=== PATIENT | female | born 1995 | race Caucasian/White ===

== ENCOUNTER 2020-09-09 17:45 | Inpatient (IN) | payer MEDICAID ==
[2020-09-09] MEDS ORDERED: Nalbuphine 10 MG/ML Syringe IVPUSH PRN (21:17)
[2020-09-09] MEDS ORDERED: Sodium Chloride 0.9% 10 ML Syringe FLUSH PRN (21:17)
[2020-09-09] MEDS ORDERED: ceFAZolin 2 GM in Premix Bag 1 BAG IV ONE (21:17)
[2020-09-09] MEDS ORDERED: Ondansetron 4 MG/2 ML SDV IVPUSH PRN (21:17)
[2020-09-09] MEDS ORDERED: Oxytocin/Lactated Ringers 10 UNIT/1,000 ML BAG IV SCH (21:30)
--- NOTE | 2020-09-09 21:44 | PCM.LDHP ---
L&D History of Present Illness - General Date of Service: 09/09/20 Admit Problem/Dx: Patient Status Order with Admit Dx/Problem 09/09/20 17:50 Patient Status [ADT] Routine Admission Diagnosis/Problem Admission Diagnosis/Problem Source of Information: Patient History Limitations: Reports: No Limitations - History of Present Illness Introduction:: Patient is a 25 y/o at 39 0/7 wks who presents in labor. Contractions started just about 24 hours ago. Have been getting closer/stronger. No concerns for LOF - Related Data Allergies/Adverse Reactions: Allergies Allergy/AdvReac Type Severity Reaction Status Date / Time Penicillins Allergy Difficulty Verified 09/09/20 19:03 Breathing Home Medications: Home Meds Acetaminophen [Tylenol Extra Strength] 500 mg PO ASDIRECTED PRN 09/09/20 [History] Folic Acid 1 mg PO DAILY 09/09/20 [History] Pnv No.95/Ferrous Fum/Folic AC [ Tablet] 1 tab PO DAILY 09/09/20 [History] Past Medical History [employer] History: Reports: : 3 Para: 2 LMP (Approximate): Neurological History: Reports: Other (See Below) (Spina bifida occulta) - Past Surgical History Other Surgical History Comment: No past surgical history Social & Family History - Tobacco Use Smoking Status *Q: Former Smoker - Alcohol Use Alcohol Use History: No - Recreational Drug Use Recreational Drug Use: No H&P Review of Systems - Review of Systems: Review Of Systems: See Below General: Reports: No Symptoms Pulmonary: Reports: No Symptoms Cardiovascular: Reports: No Symptoms Gastrointestinal: Reports: Abdominal Pain (contractions) Genitourinary: Reports: No Symptoms Musculoskeletal: Reports: No Symptoms Psychiatric: Reports: No Symptoms Neurological: Reports: No Symptoms L&D Exam - Exam Exam: See Below - Vital Signs Vital Signs: Last Vital Signs Temp 37.3 C 09/09/20 18:10 Pulse 79 09/09/20 18:10 Resp 16 09/09/20 18:10 BP 119/76 09/09/20 18:10 Pulse Ox 100 09/09/20 18:10 Weight: 75.296 kg - OB Specific Contraction Intensity: Moderate to Strong Movement: Active Heart Tones: Present Heart Tones per Min: 150 Heart Rate (FHR) Variability: Moderate (6-25 bmp) - Gonzalez Score Gonzalez Score Cervix Position: Midposition Gonzalez Score Consistency: Soft Gonzalez Score Effacement: >80% Gonzalez Score Dilation: 3-4 cm Gonzalez Score 's Station: -2 Gonzalez Score Total: 9 - Exam General: Alert, Oriented, Cooperative Lungs: Clear to Auscultation, Normal Respiratory Effort Cardiovascular: Regular Rate, Regular Rhythm GI/Abdominal Exam: Soft, Non-Tender Extremities: Normal Inspection Skin: Warm, Dry, Intact - Problem List (1) 39 weeks gestation of SNOMED Code(s): 42489655 ICD Code: Z3A.39 - 39 WEEKS GESTATION OF Status: Acute Current Visit: Yes (2) GBS (group B Streptococcus carrier), +RV culture, currently SNOMED Code(s): 0821020969370, [id number], 1034464190198 ICD Code: O99.820 - STREPTOCOCCUS B CARRIER STATE COMPLICATING Status: Acute Current Visit: Yes Problem List Initiated/Reviewed/Updated: Yes Orders Last 24hrs: Active Orders 24 hr Category Date Time Status Patient Status [ADT] Routine ADT 09/09/20 17:50 Active Activity as Tolerated [RC] PFP Care 09/09/20 21:18 Active Communication Order [RC] ASDIRECTED Care 09/09/20 21:18 Active Heart Tones [RC] ASDIRECTED Care 09/09/20 21:19 Active Non Stress Test [RC] PER UNIT ROUTINE Care 09/09/20 17:54 Active Notify Provider [RC] PRN Care 09/09/20 21:18 Active Peripheral IV Care [RC] . DIRECTED Care 09/09/20 21:19 Active Vital Signs [RC] PER UNIT ROUTINE Care 09/09/20 17:54 Active Vital Signs [RC] PER UNIT ROUTINE Care 09/09/20 21:18 Active CBC W/O DIFF,HEMOGRAM [HEME] Stat Lab 09/09/20 21:17 Ordered CORONAVIRUS COVID-19 VEE [MOLEC] Stat Lab 09/09/20 21:21 Ordered RAPID PLASMA REAGIN,RPR [CHEM] Routine Lab 09/09/20 21:18 Ordered TYPE AND SCREEN [BBK] Stat Lab 09/09/20 21:17 Ordered Lactated Ringers [Ringers, Lactated] 1,000 ml Med 09/09/20 21:30 Active IV ASDIRECTED Nalbuphine [Nubain] Med 09/09/20 21:17 Active 10 mg IVPUSH Q2H PRN Ondansetron [Zofran] Med 09/09/20 21:17 Active 4 mg IVPUSH Q4H PRN Oxytocin/Lactated Ringers [Pitocin in LR 10 Units/1,000 Med 09/09/20 21:30 Active ML] 10 unit in 1,000 ml IV .CONTINUOUS Sodium Chloride 0.9% [Saline Flush] Med 09/09/20 21:17 Active 10 ml FLUSH ASDIRECTED PRN ceFAZolin [Ancef] 1 gm Med 09/10/20 05:00 Active Premix Bag 1 bag IV Q8H ceFAZolin [Ancef] 2 gm Med 09/09/20 21:17 Active Premix Bag 1 bag IV ONETIME Electronic Heart Tones Ext w TOCO [WOMSER] Oth 09/09/20 21:18 Ordered Routine Electronic Heart Tones Internal [WOMSER] Per Unit Oth 09/09/20 21:18 Ordered Routine Peripheral IV Insertion Adult [OM.PC] Routine Oth 09/09/20 21:18 Ordered Resuscitation Status Routine Resus Stat 09/09/20 17:54 Ordered Medication Orders Lactated Ringer's (Ringers, Lactated) 1,000 mls @ 100 mls/hr IV ASDIRECTED WOLF Cefazolin Sodium/Dextrose 2 gm (/ Premix) 50 mls @ 100 mls/hr IV ONETIME ONE Stop: 09/09/20 21:46 Cefazolin Sodium/Dextrose 1 gm (/ Premix) 50 mls @ 100 mls/hr IV Q8H WOLF Oxytocin/Lactated Ringer's (Pitocin In Lr 10 Units/1,000 Ml) 10 unit in 1,000 mls @ 500 mls/hr IV .CONTINUOUS WOLF Nalbuphine HCl (Nubain) 10 mg IVPUSH Q2H PRN PRN Reason: Pain Ondansetron HCl (Zofran) 4 mg IVPUSH Q4H PRN PRN Reason: Nausea/Vomiting Sodium Chloride (Saline Flush) 10 ml FLUSH ASDIRECTED PRN PRN Reason: Keep Vein Open Assessment/Plan Comment:: Patient admitted in labor. Has made change from 2 to 4 cm. * Labs to be done * GBS positive with PCN allergy. Uncertain if has ever had a cephalosporin in past. Will start with Ancef. Monitor closely * Prefers unmedicated delivery * Anticipate
[2020-09-09] MEDS: Lactated Ringers 1,000 ML IV SCH (21:56)
[2020-09-10] MEDS ORDERED: Lidocaine 1.5% with EPINEPHrine 1:200,000 5 ML Amp ONE
[2020-09-10] MEDS ORDERED: Acetaminophen 325 MG Tab PO PRN (03:58)
[2020-09-10] MEDS ORDERED: fentaNYL 100 MCG/2 ML SDV EPIDUR PRN (04:20)
[2020-09-10] MEDS ORDERED: diphenhydrAMINE 50 MG/ML SDV IVPUSH PRN (04:20)
[2020-09-10] MEDS ORDERED: Bupivacaine/fentaNYL/NS 100 ML Bag EPIDUR PRN (04:20)
[2020-09-10] MEDS ORDERED: ePHEDrine 50 MG/ML SDV IVPUSH PRN (04:20)
[2020-09-10] MEDS: Lactated Ringers 1,000 ML IV SCH (04:25)
--- NOTE | 2020-09-10 04:59 | PCM.PREANE ---
Preanesthetic Assessment - Procedure Proposed Procedure: Continuous Labor Epidural - Anesthesia/Transfusion/Family Hx Anesthesia History: No Prior Anesthesia Transfusion History: No Prior Transfusion(s) - Review of Systems General: No Symptoms Pulmonary: No Symptoms Cardiovascular: No Symptoms Gastrointestinal: No Symptoms Neurological: No Symptoms Other: Reports: None - Physical Assessment NPO Status Date: 09/10/20 (full stomach) Vital Signs: Last Vital Signs Temp 37.3 C 09/09/20 21:18 Pulse 66 09/09/20 21:18 Resp 16 09/09/20 21:18 BP 127/65 09/09/20 21:18 Pulse Ox 98 09/09/20 21:18 Height: 5 ft 5 in Weight: 75.296 kg ASA Class: 1 Mental Status: Alert & Oriented x3 Airway Class: Mallampati = 2 Dentition: Reports: Normal Dentition Thyro-Mental Finger Breadths: 3 Mouth Opening Finger Breadths: 3 ROM/Head Extension: Full Lungs: Clear to Auscultation, Normal Respiratory Effort Cardiovascular: Regular Rate, Regular Rhythm - Lab Values: Laboratory Last Values WBC 11.42 K/mm3 (3.98-10.04) H 09/09/20 20:38 RBC 4.09 M/mm3 (3.98-5.22) 09/09/20 20:38 Hgb 12.9 gm/dl (11.2-15.7) 09/09/20 20:38 Hct 39.2 % (34.1-44.9) 09/09/20 20:38 MCV 95.8 fl (79.4-94.8) H 09/09/20 20:38 MCH 31.5 pg (25.6-32.2) 09/09/20 20:38 MCHC 32.9 g/dl (32.2-35.5) 09/09/20 20:38 RDW Std Deviation 47.3 fL (36.4-46.3) H 09/09/20 20:38 Plt Count 253 K/mm3 (182-369) 09/09/20 20:38 MPV 9.9 fl (9.4-12.3) 09/09/20 20:38 RPR Non-reactive (NONREACTIVE) 09/09/20 20:38 SARS-CoV-2 RNA (VEE) Negative (NEGATIVE) 09/09/20 22:45 Blood Type A POSITIVE 09/09/20 20:38 Gel Antibody Screen Negative 09/09/20 20:38 - Allergies Allergies/Adverse Reactions: Allergies Allergy/AdvReac Type Severity Reaction Status Date / Time Penicillins Allergy Difficulty Verified 09/09/20 19:03 Breathing - Acknowledgements Anesthesia Type Planned: Epidural Pt an Appropriate Candidate for the Planned Anesthesia: Yes Alternatives and Risks of Anesthesia Discussed w Pt/Guardian: Yes Pt/Guardian Understands and Agrees with Anesthesia Plan: Yes PreAnesthesia Questionnaire - Past Health History Medical/Surgical History: Denies Medical/Surgical History SORT LINE History: Reports: Neurological History: Reports: Other (See Below) (Spina bifida occulta) - Past Surgical History Other Surgical History Comment: No past surgical history - SUBSTANCE USE Smoking Status *Q: Former Smoker Tobacco Use Within Last Twelve Months: No Second Hand Smoke Exposure: No Recreational Drug Use History: No - HOME MEDS Home Medications: Home Meds Acetaminophen [Tylenol Extra Strength] 500 mg PO ASDIRECTED PRN 09/09/20 [History] Folic Acid 1 mg PO DAILY 09/09/20 [History] Pnv No.95/Ferrous Fum/Folic AC [ Tablet] 1 tab PO DAILY 09/09/20 [History] - CURRENT (IN HOUSE) MEDS Current Meds: Current Medications Acetaminophen (Tylenol) 650 mg PO Q4H PRN PRN Reason: Pain (moderate 4-6) Last Admin: 09/10/20 04:17 Dose: 650 mg Documented by: Diphenhydramine HCl (Benadryl) 25 mg IVPUSH Q6H PRN PRN Reason: pruritis Ephedrine Sulfate (Ephedrine Sulfate) 5 mg IVPUSH ASDIRECTED PRN PRN Reason: Hypotension Fentanyl (Sublimaze) 100 mcg EPIDUR Q3H PRN PRN Reason: Pain Last Admin: 09/10/20 04:29 Dose: 100 mcg Documented by: Fentanyl/Bupivacaine HCl (Fentanyl/Bupivacaine/Ns 2 Mcg-0.125% 100 Ml) 100 ml EPIDUR ASDIRECTED PRN PRN Reason: Pain Last Admin: 09/10/20 04:30 Dose: 100 ml Documented by: Lactated Ringer's (Ringers, Lactated) 1,000 mls @ 100 mls/hr IV ASDIRECTED WOLF Last Admin: 09/10/20 04:25 Dose: 100 mls/hr Documented by: Cefazolin Sodium/Dextrose 1 gm (/ Premix) 50 mls @ 100 mls/hr IV Q8H WOLF Oxytocin/Lactated Ringer's (Pitocin In Lr 10 Units/1,000 Ml) 10 unit in 1,000 mls @ 500 mls/hr IV .CONTINUOUS WOLF Nalbuphine HCl (Nubain) 10 mg IVPUSH Q2H PRN PRN Reason: Pain Ondansetron HCl (Zofran) 4 mg IVPUSH Q4H PRN PRN Reason: Nausea/Vomiting Sodium Chloride (Saline Flush) 10 ml FLUSH ASDIRECTED PRN PRN Reason: Keep Vein Open Discontinued Medications Cefazolin Sodium/Dextrose 2 gm (/ Premix) 50 mls @ 100 mls/hr IV ONETIME ONE Stop: 09/09/20 21:46 Last Admin: 09/09/20 21:54 Dose: 100 mls/hr Documented by:
[2020-09-10] MEDS ORDERED: ceFAZolin 1 GM in Premix Bag 1 BAG IV SCH (05:00)
--- NOTE | 2020-09-10 06:46 | PCM.PNLD ---
Labor Progress Note - VS & Meds Vital Signs: Last Vital Signs Temp 37.3 C 09/09/20 21:18 Pulse 66 09/09/20 21:18 Resp 16 09/09/20 21:18 BP 127/65 09/09/20 21:18 Pulse Ox 98 09/09/20 21:18 Active Medications: Current Medications Acetaminophen (Tylenol) 650 mg PO Q4H PRN PRN Reason: Pain (moderate 4-6) Last Admin: 09/10/20 04:17 Dose: 650 mg Documented by: Diphenhydramine HCl (Benadryl) 25 mg IVPUSH Q6H PRN PRN Reason: pruritis Ephedrine Sulfate (Ephedrine Sulfate) 5 mg IVPUSH ASDIRECTED PRN PRN Reason: Hypotension Last Admin: 09/10/20 05:17 Dose: 5 mg Documented by: Fentanyl (Sublimaze) 100 mcg EPIDUR Q3H PRN PRN Reason: Pain Last Admin: 09/10/20 04:29 Dose: 100 mcg Documented by: Fentanyl/Bupivacaine HCl (Fentanyl/Bupivacaine/Ns 2 Mcg-0.125% 100 Ml) 100 ml EPIDUR ASDIRECTED PRN PRN Reason: Pain Last Admin: 09/10/20 04:30 Dose: 100 ml Documented by: Lactated Ringer's (Ringers, Lactated) 1,000 mls @ 100 mls/hr IV ASDIRECTED WOLF Last Admin: 09/10/20 04:25 Dose: 100 mls/hr Documented by: Cefazolin Sodium/Dextrose 1 gm (/ Premix) 50 mls @ 100 mls/hr IV Q8H WOLF Last Admin: 09/10/20 05:18 Dose: 100 mls/hr Documented by: Oxytocin/Lactated Ringer's (Pitocin In Lr 10 Units/1,000 Ml) 10 unit in 1,000 mls @ 500 mls/hr IV .CONTINUOUS WOLF Nalbuphine HCl (Nubain) 10 mg IVPUSH Q2H PRN PRN Reason: Pain Ondansetron HCl (Zofran) 4 mg IVPUSH Q4H PRN PRN Reason: Nausea/Vomiting Sodium Chloride (Saline Flush) 10 ml FLUSH ASDIRECTED PRN PRN Reason: Keep Vein Open Discontinued Medications Cefazolin Sodium/Dextrose 2 gm (/ Premix) 50 mls @ 100 mls/hr IV ONETIME ONE Stop: 09/09/20 21:46 Last Admin: 09/09/20 21:54 Dose: 100 mls/hr Documented by: - Uterine Contractions Uterine Monitoring Mode: External [place] Contraction Intensity: Moderate to Strong - Monitoring Monitor Mode: External Ultrasound Heart Rate (FHR) Baseline: 145 Heart Rate (FHR) Variability: Moderate (6-25 bmp) Accelerations: Present, 15x15 Decelerations: None Strip Review: Category I - Vaginal Exam Dilation (cm): 6-7 Effacement (Percent): 80 Station: -1 Cervical Position: Midposition - Labor Progress (Free Text) Labor Progress: Doing well. Received and epidural overnight. Slow change. AROM just performed. Continue to monitor.
--- NOTE | 2020-09-10 08:36 | PCM.PNLD ---
Labor Progress Note - VS & Meds Vital Signs: Last Vital Signs Temp 37.3 C 09/09/20 21:18 Pulse 66 09/09/20 21:18 Resp 16 09/09/20 21:18 BP 127/65 09/09/20 21:18 Pulse Ox 98 09/09/20 21:18 Active Medications: Current Medications Acetaminophen (Tylenol) 650 mg PO Q4H PRN PRN Reason: Pain (moderate 4-6) Last Admin: 09/10/20 04:17 Dose: 650 mg Documented by: Diphenhydramine HCl (Benadryl) 25 mg IVPUSH Q6H PRN PRN Reason: pruritis Ephedrine Sulfate (Ephedrine Sulfate) 5 mg IVPUSH ASDIRECTED PRN PRN Reason: Hypotension Last Admin: 09/10/20 05:17 Dose: 5 mg Documented by: Fentanyl (Sublimaze) 100 mcg EPIDUR Q3H PRN PRN Reason: Pain Last Admin: 09/10/20 04:29 Dose: 100 mcg Documented by: Fentanyl/Bupivacaine HCl (Fentanyl/Bupivacaine/Ns 2 Mcg-0.125% 100 Ml) 100 ml EPIDUR ASDIRECTED PRN PRN Reason: Pain Last Admin: 09/10/20 04:30 Dose: 100 ml Documented by: Lactated Ringer's (Ringers, Lactated) 1,000 mls @ 100 mls/hr IV ASDIRECTED WOLF Last Admin: 09/10/20 04:25 Dose: 100 mls/hr Documented by: Cefazolin Sodium/Dextrose 1 gm (/ Premix) 50 mls @ 100 mls/hr IV Q8H WOLF Last Admin: 09/10/20 05:18 Dose: 100 mls/hr Documented by: Oxytocin/Lactated Ringer's (Pitocin In Lr 10 Units/1,000 Ml) 10 unit in 1,000 mls @ 500 mls/hr IV .CONTINUOUS WOLF Oxytocin/Lactated Ringer's (Pitocin In Lr 10 Units/1,000 Ml) 10 unit in 1,000 mls @ 12 mls/hr IV TITRATE WOLF; Protocol Last Admin: 09/10/20 08:33 Dose: 2 munits/min, 12 mls/hr Documented by: Nalbuphine HCl (Nubain) 10 mg IVPUSH Q2H PRN PRN Reason: Pain Ondansetron HCl (Zofran) 4 mg IVPUSH Q4H PRN PRN Reason: Nausea/Vomiting Sodium Chloride (Saline Flush) 10 ml FLUSH ASDIRECTED PRN PRN Reason: Keep Vein Open Discontinued Medications Cefazolin Sodium/Dextrose 2 gm (/ Premix) 50 mls @ 100 mls/hr IV ONETIME ONE Stop: 09/09/20 21:46 Last Admin: 09/09/20 21:54 Dose: 100 mls/hr Documented by: - Uterine Contractions Uterine Monitoring Mode: External [place] Contraction Intensity: Moderate to Strong - Monitoring Monitor Mode: External Ultrasound Heart Rate (FHR) Baseline: 145 Heart Rate (FHR) Variability: Moderate (6-25 bmp) Accelerations: Present, 15x15 Decelerations: None Strip Review: Category I - Vaginal Exam Dilation (cm): 6-7 Effacement (Percent): 80 Station: -1 Cervical Position: Midposition - Labor Progress (Free Text) Labor Progress: Term labor. Slow progress over last 2 hours. Will start pitocin.
[2020-09-10] MEDS ORDERED: Oxytocin/Lactated Ringers 10 UNIT/1,000 ML BAG IV SCH (08:45)
--- NOTE | 2020-09-10 11:57 | PCM.SN.2 ---
- Free Text/Narrative Note: Stage I - Patient presented in active labor. Progressed to complete with epidural, antibiotics for GBS and overall reassuring FHT. AROM clear fluid. Pitocin intiated. Progressed to complete. Stage II - of viable male, weight 8#12 oz (3960g), APGARS 8/9 at 1139. Head delivered in controlled manner over intact perineum. Body and shoulders atraumatically. To maternal abdomen. Positive cry. Cord clamped and cut at one minute of life. Stage III - of intact placenta at 1143. 3vc. No laceration.
[2020-09-10] MEDS ORDERED: Witch Hazel Medicated Pads 40/Jar TOP PRN (12:37)
[2020-09-10] MEDS ORDERED: Docusate Sodium 100 MG Cap PO PRN (12:37)
[2020-09-10] MEDS ORDERED: Benzocaine/Menthol 20%-0.5% Spray 56 GM Canister TOP PRN (12:37)
[2020-09-10] MEDS ORDERED: Hydrocortisone Acetate 25 MG Supp RECTAL PRN (12:37)
[2020-09-10] MEDS: Prenatal Multivitamin with Calcium/Folic Acid/Iron Tab PO SCH (15:40)
[2020-09-10] MEDS: Ibuprofen 600 MG Tab PO PRN ×2 (17:32→23:21)
[2020-09-11] MEDS: Ibuprofen 600 MG Tab PO PRN ×2 (05:20→13:05)
[2020-09-11] MEDS: Prenatal Multivitamin with Calcium/Folic Acid/Iron Tab PO SCH (08:19)
[2020-09-11 09:01] VITALS: BP 126/94; PULSE 70
[2020-09-11] MEDS ORDERED: Measles, Mumps & Rubella Vaccine 0.5 ML SDV SUBCUT ONE (11:30)
--- NOTE | 2020-09-11 11:35 | PCM48HPAN ---
Post Anesthesia Note - EVALUATION WITHIN 48HRS OF ANESTHETIC Vital Signs in Normal Range: Yes Patient Participated in Evaluation: Yes Respiratory Function Stable: Yes Airway Patent: Yes Cardiovascular Function Stable: Yes Hydration Status Stable: Yes Pain Control Satisfactory: Yes Nausea and Vomiting Control Satisfactory: Yes Mental Status Recovered: Yes Vital Signs: Last Vital Signs Temp 97.3 F 09/11/20 07:34 Pulse 70 09/11/20 07:34 Resp 18 09/11/20 07:34 BP 126/94 H 09/11/20 07:34 Pulse Ox 100 09/11/20 07:34
--- NOTE | 2020-09-13 00:58 | PCM.DCSUM1 ---
Discharge Summary - Hospital Course Brief History: Admitted in labor. AROM'd clear fluid. Pitocin augmentation. Uncomplicated and course - Discharge Data Discharge Date: 09/11/20 Discharge Disposition: Home, Self-Care 01 Condition: Good - Referral to Home Health Primary Care Physician: Meggan Ayala MD - Patient Instructions Diet: Regular Diet as Tolerated Activity: As Tolerated, No Strenuous Activities Driving: May Drive Today Showering/Bathing: May Shower Notify Provider of: Fever, Increased Pain, Swelling and Redness, Drainage, Nausea and/or Vomiting - Discharge Plan *PRESCRIPTION DRUG MONITORING PROGRAM REVIEWED*: No *COPY OF PRESCRIPTION DRUG MONITORING REPORT IN PATIENT VERONICA: No Home Medications: Home Meds Acetaminophen [Tylenol Extra Strength] 500 mg PO ASDIRECTED PRN 09/09/20 [History] Folic Acid 1 mg PO DAILY 09/09/20 [History] Pnv No.95/Ferrous Fum/Folic AC [ Tablet] 1 tab PO DAILY 09/09/20 [History] Patient Handouts: Care After Vaginal Delivery Referrals: Meggan Ayala MD [Primary Care Provider] - - Discharge Summary/Plan Comment DC Time >30 min.: No - General Info Date of Service: 09/11/20 Functional Status: Reports: Pain Controlled - Review of Systems General: Reports: No Symptoms HEENT: Reports: No Symptoms Pulmonary: Reports: No Symptoms Cardiovascular: Reports: No Symptoms Gastrointestinal: Reports: No Symptoms Genitourinary: Reports: No Symptoms Musculoskeletal: Reports: No Symptoms Skin: Reports: No Symptoms Neurological: Reports: No Symptoms Psychiatric: Reports: No Symptoms - Patient Data Vitals - Most Recent: Last Vital Signs Temp 36.3 C 09/11/20 07:34 Pulse 70 09/11/20 07:34 Resp 18 09/11/20 07:34 BP 126/94 H 09/11/20 07:34 Pulse Ox 100 09/11/20 07:34 Weight - Most Recent: 75.296 kg Med Orders - Current: Current Medications Discontinued Medications Acetaminophen (Tylenol) 650 mg PO Q4H PRN PRN Reason: Pain (moderate 4-6) Last Admin: 09/10/20 04:17 Dose: 650 mg Documented by: Benzocaine/Menthol (Dermoplast Pain Relief [place]) 0 gm TOP ASDIRECTED PRN PRN Reason: Perineal Comfort Measure Last Admin: 09/10/20 13:34 Dose: 1 can Documented by: Diphenhydramine HCl (Benadryl) 25 mg IVPUSH Q6H PRN PRN Reason: pruritis Docusate Sodium (Colace) 100 mg PO BID PRN PRN Reason: Constipation Last Admin: 09/10/20 21:08 Dose: 100 mg Documented by: Ephedrine Sulfate (Ephedrine Sulfate) 5 mg IVPUSH ASDIRECTED PRN PRN Reason: Hypotension Last Admin: 09/10/20 05:17 Dose: 5 mg Documented by: Fentanyl (Sublimaze) 100 mcg EPIDUR Q3H PRN PRN Reason: Pain Last Admin: 09/10/20 04:29 Dose: 100 mcg Documented by: Fentanyl/Bupivacaine HCl (Fentanyl/Bupivacaine/Ns 2 Mcg-0.125% 100 Ml) 100 ml EPIDUR ASDIRECTED PRN PRN Reason: Pain Last Admin: 09/10/20 04:30 Dose: 100 ml Documented by: Hydrocortisone Acetate (Anucort-Hc) 25 mg RECTAL BID PRN PRN Reason: Hemorrhoid pain Lactated Ringer's (Ringers, Lactated) 1,000 mls @ 100 mls/hr IV ASDIRECTED WOLF Last Admin: 09/10/20 04:25 Dose: 100 mls/hr Documented by: Cefazolin Sodium/Dextrose 2 gm (/ Premix) 50 mls @ 100 mls/hr IV ONETIME ONE Stop: 09/09/20 21:46 Last Admin: 09/09/20 21:54 Dose: 100 mls/hr Documented by: Cefazolin Sodium/Dextrose 1 gm (/ Premix) 50 mls @ 100 mls/hr IV Q8H WOLF Last Admin: 09/10/20 05:18 Dose: 100 mls/hr Documented by: Oxytocin/Lactated Ringer's (Pitocin In Lr 10 Units/1,000 Ml) 10 unit in 1,000 mls @ 500 mls/hr IV .CONTINUOUS WOLF Oxytocin/Lactated Ringer's (Pitocin In Lr 10 Units/1,000 Ml) 10 unit in 1,000 mls @ 12 mls/hr IV TITRATE WOLF; Protocol Last Titration: 09/10/20 10:46 Dose: 10 munits/min, 60 mls/hr Documented by: Ibuprofen (Motrin) 600 mg PO Q6H PRN PRN Reason: Pain Last Admin: 09/11/20 13:05 Dose: 600 mg Documented by: Measles/Mumps/Rubella Vaccine Live (M-M-R Ii Vaccine) 0.5 ml SUBCUT .ONCE ONE Stop: 09/11/20 11:31 Last Admin: 09/11/20 10:56 Dose: 0.5 ml Documented by: Nalbuphine HCl (Nubain) 10 mg IVPUSH Q2H PRN PRN Reason: Pain Ondansetron HCl (Zofran) 4 mg IVPUSH Q4H PRN PRN Reason: Nausea/Vomiting Prenat Multivit/[place]/Iron/Folic Ac ( Plus Iron) 1 each PO DAILY WOLF Last Admin: 09/11/20 08:19 Dose: 1 each Documented by: Sodium Chloride (Saline Flush) 10 ml FLUSH ASDIRECTED PRN PRN Reason: Keep Vein Open Witch Stephanie (Tucks) 1 pad TOP ASDIRECTED PRN PRN Reason: Pain Last Admin: 09/10/20 13:33 Dose: 1 tub Documented by: - Exam General: Reports: Alert, Oriented HEENT: Reports: Pupils Equal, Pupils Reactive, EOMI, Mucous Membr. Moist/[place] Neck: Reports: Supple Lungs: Reports: Clear to Auscultation, Normal Respiratory Effort Cardiovascular: Reports: Regular Rate, Regular Rhythm GI/Abdominal Exam: Normal Bowel Sounds, Soft, Non-Tender, No Organomegaly, No Distention, No Abnormal Bruit, No Mass, Pelvis Stable Back Exam: Reports: Normal Inspection, Full Range of Motion Extremities: Normal Inspection, Normal Range of Motion, Non-Tender, No Pedal Edema, Normal Capillary Refill Skin: Reports: Warm, Dry, Intact Wound/Incisions: Reports: Healing Well Neurological: Reports: No New Focal Deficit Psy/Mental Status: Reports: Alert, Normal Affect, Normal Mood
== END 2020-09-11 14:20 | disposition home or self-care (01) | DRG 807 ==
LOC: JD.OBCHECK 17:45 → JD.OB 17:46 → JD.OBCHECK 21:00 → OBSVTOIN 09-10 11:39 → JD.OB 09-10 15:16
PROVIDERS: ADMIT Obstetrics & Gynecology; ATTEND Obstetrics & Gynecology
PROC: 10E0XZZ Delivery of Products of Conception, External Approach (ICD-10-PCS; principal; 2020-09-10)
PROC: 10907ZC Drainage of Amniotic Fluid, Therapeutic from Products of Conception, Via Natural or Artificial Opening (ICD-10-PCS; 2020-09-10)
PROC: 3E0R3BZ Introduction of Anesthetic Agent into Spinal Canal, Percutaneous Approach (ICD-10-PCS; 2020-09-10)
DX: O99.824 Streptococcus B carrier state complicating childbirth (principal); Z37.0 Single live birth; Z3A.39 39 weeks gestation of pregnancy; Z88.0 Allergy status to penicillin; Z20.828 Contact with and (suspected) exposure to other viral communicable diseases
CPT/HCPCS: 01967; 36415; 51702; 59025; 59409; 85027; 86592; 86850; 86900; 86901; 90471; 90707; A9270-GY; J0690; J2590; J3010; J7120; U0002

== ENCOUNTER 2022-10-14 20:12 | Emergency (ER) | payer SELFPAY ==
[2022-10-14 20:37] VITALS: BP 156/105; PULSE 77
[2022-10-14] MEDS ORDERED: LORazepam 2 MG/ML SDV IM ONE (20:47)
== END 2022-10-14 21:40 | disposition home or self-care (01) ==
LOC: MERGE 20:12 → JD.ED 20:12
DX: J39.2 Other diseases of pharynx (principal); Z88.0 Allergy status to penicillin
CPT/HCPCS: 96372; 99282; J2060

== ENCOUNTER 2022-10-31 09:37 | Emergency (ER) | payer SELFPAY ==
[2022-10-31] MEDS ORDERED: Metoclopramide 10 MG/2 ML SDV IVPUSH ONE (10:16)
[2022-10-31] MEDS ORDERED: HYDROmorphone 0.5 MG/0.5 ML Syringe IVPUSH ONE (10:17)
[2022-10-31] MEDS ORDERED: Ketorolac 30 MG/ML SDV IVPUSH SCH (10:30)
[2022-10-31] MEDS ORDERED: Dextrose 5%-Lactated Ringers 1,000 ML IV SCH ×2 (10:30→13:00)
[2022-10-31 10:59] LABS: ESTIMATED GFR 89 mL/min (>60)
[2022-10-31 14:47] LABS: CORONAVIRUS COVID-19 NAA NEGATIVE (NEGATIVE)
[2022-10-31 18:09] VITALS: BP 122/70; PULSE 80
== END 2022-10-31 14:35 | disposition home or self-care (01) ==
LOC: JD.ED 09:37
DX: A09 Infectious gastroenteritis and colitis, unspecified (principal); Z88.0 Allergy status to penicillin; Z20.822 Contact with and (suspected) exposure to COVID-19
CPT/HCPCS: 0241U; 36415; 74018; 80053; 81001; 83690; 83735; 84703; 85025; 86140; 96361; 96374; 96375; 99284; J1170; J1885; J2765; J7121

== ENCOUNTER 2023-09-01 12:05 | Emergency (ER) | payer MEDICAID ==
[2023-09-01] MEDS ORDERED: Sodium Chloride 0.9% 10 ML Syringe FLUSH PRN (12:47)
[2023-09-01] MEDS ORDERED: Ondansetron 4 MG/2 ML SDV IVPUSH ONE (12:47)
[2023-09-01] MEDS ORDERED: Sodium Chloride 0.9% 1,000 ML IV SCH (13:00)
[2023-09-01 15:04] LABS: CORONAVIRUS COVID-19 NAA NEGATIVE (NEGATIVE); INFLUENZA A NAA NEGATIVE (NEGATIVE)
[2023-09-01] MEDS ORDERED: Ibuprofen 800 MG Tab PO ONE (15:13)
[2023-09-01] MEDS ORDERED: Promethazine 12.5 MG in Sodium Chloride 0.9% 50 ML IV ONE (15:26)
[2023-09-01 15:33] LABS: APPEARANCE,URINE CLEAR (Clear); BILIRUBIN,URINE NEGATIVE (Negative); COLOR,URINE YELLOW (Yellow); GLUCOSE,URINE NEGATIVE (Negative); KETONES,URINE 3+ (Negative); LEUKOCYTE ESTERASE,URINE NEGATIVE (Negative); NITRITE,URINE NEGATIVE (Negative); OCCULT BLOOD,URINE NEGATIVE (Negative); PH,URINE 8.5 (5.0-8.0); PROTEIN,URINE 1+ (Negative); UROBILINOGEN,URINE 0.2 (0.2-1.0)
[2023-09-01 15:46] LABS: AMORPHOUS SEDIMENT,URINE MODERATE /hpf (NOT SEEN); BACTERIA,URINE FEW /hpf (FEW); MUCUS,URINE FEW /hpf (FEW); RBC,URINE 0-5 /hpf (0-5); WBC,URINE 0-5 /hpf (0-5)
[2023-09-01 21:50] VITALS: BP 143/89; PULSE 59
== END 2023-09-01 16:20 | disposition home or self-care (01) ==
LOC: JD.ED 12:05
DX: A08.4 Viral intestinal infection, unspecified (principal); Z88.0 Allergy status to penicillin
CPT/HCPCS: 0240U; 81001; 81025; 96361; 96365; 96375; 99284; J2405; J2550; J3490; J7030